=== PATIENT | female | born 1960 | race Caucasian/White ===

== ENCOUNTER → 2018-02-16 | Outpatient (CLI) | payer OTHER, MEDICAID ==
[2018-02-16 09:59] LABS: CREATININE 1.2 mg/dL (0.6-1.0)
[2018-02-16 09:59] LABS: GFR 46.6
== END | disposition home or self-care (01) ==
LOC: MRI 15:00
DX: M51.34 Other intervertebral disc degeneration, thoracic region (principal); M25.78 Osteophyte, vertebrae
CPT/HCPCS: 36415; 72146; 82565